=== PATIENT | male | born 1985 | race Caucasian/White ===

== ENCOUNTER 2019-10-22 02:43 | Emergency (ER) | payer OTHER, SELFPAY ==
[2019-10-22 03:00] VITALS: BP 145/81; PULSE 73; RESP 17; TEMP 36.8; O2SAT 98; BMI 25.0
--- NOTE | 2019-10-22 03:06 | HMH.EDMCLR ---
ED Disposition Clinical Impression: Encounter for medical clearance for patient hold Disposition: Home, Self-Care Condition on Discharge: Good Referrals: PCP,No [Primary Care Provider] - - Critical Care Critical Care Time: No Attestation: On 10/22/19, the high probability of a clinically significant, sudden or life threatening deterioration of the following system(s) required my full and direct attention, intervention and personal management. The time I documented below is in addition to time spent performing reported procedures but includes the following listed in this critical care notation. Medical Decision Making - Medical Records Medical records reviewed: Yes: I reviewed the patient's medical records. - Piter Inquiry Pt receiving controlled substance: No Vital Signs: 10/22/19 03:00 Temperature 98.2 F Temperature Source Oral Pulse Rate [Right Brachial] 73 Respiratory Rate 17 Blood Pressure [Right Arm] 145/81 H Blood Pressure Mean [Right Arm] 102 Blood Pressure Source [Right Arm] Automatic Cuff Blood Pressure Position [Right Arm] Sitting 02 Sat by Pulse Oximetry 98 Oxygen Delivery Method Room Air - Lab Data Lab results reviewed: Yes: I reviewed the patient's lab results. Medical Clearance HPI - General Chief complaint: Medical Clearance Stated complaint: Medical Clearance Time Seen by Provider: 10/22/19 03:00 Mode of Arrival: Ambulatory Source of Information: Patient Description of Symptoms (Recalled from ER Triage Doc. by RN): medical clearance for senior living - History of Present Illness complaint: medical clearance requested Onset (ago): hour(s) Reason for Medical Clearance: other (Arrested for methamphetamines) Place: street Alleged Intoxication: No Compliant with Home Medications: No Traumatic Symptoms: denies traumatic injury Associated Symptoms: denies other symptoms Treatments Prior to Arrival: none Allergies/Adverse reactions: Allergies Allergy/AdvReac Type Severity Reaction Status Date / Time INGREDIENT: NO KNOWN - NO Allergy Unknown Uncoded 03/11/17 14:44 KNOWN DRUG ALLERGY [facility] History - Hepatitis A Screen Drug use history?: No High risk sexual behaviors?: No History of sexually transmitted infection?: No Currently employed?: No Childcare worker?: No Do you have indoor plumbing?: Yes Do you have electricity?: Yes Attestation statement:: This patient has been screened for Hepatitis A risk factors. I have reviewed the patient's past medical history: Yes ROS Obtained: Yes All systems reviewed & no additional complaints - Constitutional Constitutional: Reports system reviewed and no additional complaints, except as docu - Eyes Eyes: Reports system reviewed and no additional complaints, except as docu - ENT Ears, Nose, Mouth, and Throat: Reports system reviewed and no additional complaints, except as docu - Cardiovascular Cardiovascular: Reports system reviewed and no additional complaints, except as docu - Respiratory Respiratory: Yes system reviewed and no additional complaints, except as docu - Gastrointestinal Gastrointestingal: Reports: system reviewed and no additional complaints, except as docu - Genitourinary Male Genitourinary: Reports system reviewed and no additional complaints, except as docu Female Genitourinary: Reports system reviewed and no additional complaints, except as docu - Musculoskeletal Musculoskeletal: Reports system reviewed and no additional complaints, except as docu - Integumentary/Breasts Skin/Breast: Reports system reviewed and no additional complaints, except as docu - Neurologic Neurologic: Reports system reviewed and no additional complaints, except as docu - Endocrine Endocrine: Reports system reviewed and no additional complaints, except as docu - Hematologic/Lymphatic Henatologic/Lymphatic: Reports system reviewed and no additional complaints, except as docu - Allergic/Immunologic Allergic/Immunolog
[2019-10-22 03:20] VITALS: BP 130/82; PULSE 69; RESP 16; TEMP 36.8; O2SAT 98
== END 2019-10-22 03:22 | disposition home or self-care (01) ==
PROVIDERS: Emergency Provider Family Medicine
DX: F15.10 Other stimulant abuse, uncomplicated (principal)
CPT/HCPCS: 99282

== ENCOUNTER 2023-11-11 17:46 | Emergency (ER) | payer OTHER, SELFPAY ==
--- NOTE | 2023-11-11 17:44 | XR_ITS ---
PROCEDURE INFORMATION: Exam: XR Chest Exam date and time: 11/11/2023 5:59 PM Age: 38 years old Clinical indication: Injury or trauma; Other: Cpr; Blunt trauma (contusions or hematomas); Additional info: Opioid od, narcan, bystander cpr TECHNIQUE: Imaging protocol: Radiologic exam of the chest. Views: 1 view. COMPARISON: No relevant prior studies available. FINDINGS: Lungs: No evidence of acute pulmonary disease or infiltrates Pleural spaces: No large effusion or pneumothorax. Heart/Mediastinum: No evidence of mediastinal widening or cardiac silhouette enlargement; the mediastinum and heart appear within normal limits for contour and size. Bones/joints: No evidence of acute osseous abnormalities within the visualized portions of the thoracic spine and ribs. Osseous structures appear appropriate for patient age. IMPRESSION: No dense parenchymal consolidation, pleural effusion, or pneumothorax.
[2023-11-11] MEDS: ONDANSETRON 4MG/2ML VIAL 4 MG IV (17:49)
[2023-11-11] MEDS: LACTATED RINGERS 1000ML 1,000 ML 999 ML IV (17:49)
--- NOTE | 2023-11-11 17:51 | ED_ITS ---
Discharge Plan Disposition Patient Disposition: Home, Self-Care Condition: Good Prescriptions Prescriptions: New naloxone [Narcan] 4 mg/actuation spray,non-aerosol 4 mg intranasal Q2M PRN (Reason: opioid overdose) Qty: 2 0RF Rx Instructions: spray 1 dose into ONE nostril; alternate nostrils w each dose until help arrives Referrals Follow up/Referrals: Provider,Referral, MD [Primary Care Provider] - See instructions Activity Restrictions/Add. Instructions Additional Instructions/Restrictions: You were evaluated in the emergency department today. Please clam picker your Narcan and keep on hand in case of emergencies. Refrain from drug use. Return to the emergency department for new or worsening symptoms Clinical Impressions Clinical Impression: Drug overdose Instructions Patient Instructions: DI for Drug Overdose in Adults Print Language Print Language: Martiniquais Discharge ED Provider: Julienne Torres General Adult HPI General Chief complaint: Overdose Stated complaint: OD/unresponsive 16mg Narcan [employer] Time Seen by Provider: 11/11/23 17:47 History of Present Illness HPI narrative: This patient is a 38-year-old male with a history of polysubstance use presenting to the emergency department for evaluation with concern for overdose. Patient reportedly went down at the home of his parents and received 14 mg of Narcan prior to arrival. He was initially unresponsive, but then was alert and oriented x 4. Patient states that he was helping his Mom move when he used what he thought was IV methamphetamines. He was found unresponsive, and a bystander at home reportedly had initiated CPR, though when police arrived on scene they noted the patient had a pulse and advised him to stop. Patient received intranasal Narcan with police and IV narcan with EMS, total 14 mg. Patient is currently awake and conversational. He currently states that he is nauseated but denies any other concerns or complaints. He denies any intent to harm himself. He notes that he has had to receive Narcan in the past for overdose, as he is tried a little bit of everything substance use lujan. Related Data Previous Rx's ?Medication ?Instructions ?Recorded naloxone 4 mg/actuation nasal 4 mg intranasal Q2M PRN opioid 11/11/23 spray (Narcan) overdose #2 ea Allergies Allergy/AdvReac Type Severity Reaction Status Date / Time INGREDIENT: NO KNOWN - NO Allergy Unknown Uncoded 03/11/17 14:44 KNOWN DRUG ALLERGY [facility] Disclaimer: The information contained in this section may have been updated after the patient was seen, as this information can be updated by other users. Social History Smoking Status: Never smoker alcohol intake: never current occupational status: unemployed Travel in the last 8 weeks: None ROS Obtained: Yes All systems reviewed & no additional complaints except as documented Physical Exam General General appearance: alert and in no apparent distress Head Head exam: atraumatic and normocephalic Eye Eye exam: Present normal appearance, PERRL and EOMI ENT ENT exam: Present normal exam, normal oropharynx, mucous membranes moist and normal external ear exam Neck Neck exam: Present normal inspection, full ROM and trachea midline; Absent tenderness Chest Chest inspection: Present normal inspection and symmetric chest wall rise; Absent tenderness Respiratory Respiratory exam: Present normal lung sounds bilaterally; Absent respiratory distress, wheezes, stridor or accessory muscle use Cardiovascular Cardiovascular exam: Present regular rate and normal rhythm Abdominal Exam Abdominal exam: Present soft; Absent distention, tenderness or guarding Extremities Exam Extremities exam: Present normal inspection, full ROM and normal capillary refill; Absent tenderness or edema Back Exam Back exam: Present normal inspection and full ROM; Absent tenderness Neurological Exam Neurological exam: Present alert, oriented X3, CN II-XII intact and normal gait; Absent motor sensory deficit Psychiatric Psychiatric exam: Present normal affect and normal mood Skin Skin exam: Present warm and diaphoresis Medical Decision Making Medical Records Medical records reviewed: Yes I reviewed the patient's medical records. Piter Inquiry Pt receiving controlled substance: No Vital Signs: 11/11/23 18:02 11/11/23 18:30 11/11/23 21:05 Temperature 97.4 F L 98.7 F Temperature Source Oral Oral Pulse Rate 70 61 Pulse Rate [Left Radial] 82 Respiratory Rate 20 18 Blood Pressure 127/84 142/64 H Blood Pressure [Right Arm] 123/83 Blood Pressure Mean [Right Arm] 96 Blood Pressure Source Automatic Cuff Blood Pressure Position Sitting 02 Sat by Pulse Oximetry 99 99 Oxygen Delivery Method Room Air Room Air Lab Data Lab results reviewed: Yes I reviewed the patient's lab results. Lab Results 11/11/23 17:41: WBC 4.5 L, RBC 4.36 L, Hgb 13.5 L, Hct 43.4, MCV 99.6 H, MCH 31.0, MCHC 31.1 L, RDW 14.1, Plt Count 324, MPV 7.4, Neut % (Auto) 54.8, Lymph % (Auto) 35.7, [place] % (Auto) 5.9, Eos % (Auto) 2.5, Baso % (Auto) 1.2, Neut # (Auto) 2.5, Lymph # (Auto) 1.6, [place] # (Auto) 0.3, Eos # (Auto) 0.1, Baso # (Auto) 0.1, Sodium 138, Potassium 3.2 L, Chloride 105, Carbon Dioxide 29, Anion Gap 7.2, BUN 10, Creatinine 0.80, Estimated GFR 108, Est GFR ( Amer) 130, Glucose 138 H, Lactate 1.6, Calcium 8.7, Total Bilirubin 0.6, AST 70 H, ALT 61, Alkaline Phosphatase 65, Total Protein 6.7, Albumin 4.0, Globulin 2.7, Albumin/Globulin Ratio 1.5, Salicylates < 1.0 L, Acetaminophen < 10 L, Plasma/Serum Alcohol < 10 11/11/23 17:48: VBG pH 7.42 H, VBG pCO2 43.0, VBG pO2 95.3 H, VBG HCO3 27.1, VBG Total CO2 28.4 H, VBG O2 Saturation 97.3 H, VBG Base Excess 2.6 H, VBG Lactic Acid 1.9 11/11/23 17:41 11/11/23 17:41 Orders (Tests/Meds): ED MEDICATIONS Discontinued Medications Generic Name Dose Route Start Last Admin Trade Name Mishaq PRN Reason Stop Dose Admin Lactated Ringer's 1,000 mls @ 999 mls/hr 11/11/23 17:47 11/11/23 17:49 Lactated Ringer's 1000 Ml Bag IV 11/11/23 18:47 999 mls/hr .Q1H1M ONE Administration Naloxone HCl 4 mg 11/11/23 18:28 11/11/23 18:29 Naloxone Hcl 4mg [place] NS 11/11/23 18:29 4 mg ONCE ONE Administration Ondansetron HCl 4 mg 11/11/23 17:47 11/11/23 17:49 Ondansetron 4mg/2ml Vial IV 11/11/23 17:48 4 mg ONCE ONE Administration ORDERS Category Date Time Status CXR --portable [XR chest portable] Stat Exams 11/11/23 17:44 Completed Acetaminophen Stat Lab 11/11/23 17:41 Completed Complete Blood Count Auto Diff Stat Lab 11/11/23 17:41 Completed Comprehensive Metabolic Panel Stat Lab 11/11/23 17:41 Completed Ethyl Alcohol Stat Lab 11/11/23 17:41 Completed Lactic Acid Stat Lab 11/11/23 17:41 Completed Salicylate Stat Lab 11/11/23 17:41 Completed VBG [Venous Blood Gas] Stat RT 11/11/23 17:48 Completed ECG Data Tracing #1: I reviewed this ECG and interpreted as documented below: Normal sinus rhythm with a ventricular rate of [address] changes concerning for ischemia. Normal axis and intervals ECG initial impression date: 11/11/23 ECG initial impression time: 17:55 Medical Decision Narrative: In summary, this patient is a 38-year-old male presenting to the Emergency Department for evaluation of overdose. Differential diagnoses considered include but are not limited to opioid overdose, polysubstance ingestion, suicide attempt, unintentional overdose, pulmonary edema from Narcan, hypoglycemia. History consistent with opioid overdose given initially unresponsive then A&O x 4 after narcan. Ruling out the most morbid conditions drove assessment. On exam, the patient is alert, conversational, nontoxic-appearing in no acute distress with reassuring vital signs on cardiac telemetry. Fingerstick blood glucose normal. EKG obtained is reassuring. workup included CBC, CMP, acetaminophen level, salicylate level, VBG, lactic acid, urinalysis, urine drug screen, chest x-ray. Patient was given a bolus of IV fluids as well as IV Zofran for symptomatic improvement. I independently interpreted CXR prior to the radiologist read and noted no obvious pulmonary edema, pneumothorax, or displaced rib fractures. Please see their read for final interpretation. Labs were obtained that demonstrated very mild leukopenia, with a mild alkalosis, mildly elevated AST. Patient also has mild hypokalemia with a potassium of 3.2. Salicylate, acetaminophen, ethanol negative. On multiple subsequent reassessments, the patient is very sleepy, but has no respiratory depression with bradypnea, apnea, or other concerns. Oxygen saturation remains 100% on cardiac telemetry. At 1815, patient was placed in ED observation status pending continued monitoring to make sure he does not have recurrence of respiratory depression in the setting of opioid overdose to determine whether or not the patient would be appropriate for discharge versus admission. The patient was provided serial reevaluations and cardiac monitoring while awaiting ultimate disposition. Patient continued to have clinical improvement. He did not have any respiratory depression or hypoxia noted on telemetry. Patient was able to ambulate and tolerate PO without difficulty. Given reassuring workup and exam, it is felt that the patient is appropriate for discharge at 2100. He was given take home pack of narcan and prescription for narcan. He was counseled on cessation of substance abuse. He was discharged with strict return precautions. Total ED observation time was 2 hours 45 minutes. I had a [id number] visit with the patient when providing discharge instructions. The total time involved in discharging this patient was less than 30 minutes. Critical Care Critical Care Time Critical Care Time: No
[2023-11-11 17:54] LABS: Lactate Venous 1.9 mmol/L (0.4-2.0); VBG Base Excess 2.6 mmol/L (-2.4-2.3); VBG HCO3 27.1 mmol/L (23-30); VBG Oxygen Saturation 97.3 % (50-70); VBG PH 7.42 mmol/L (7.31-7.41); VBG PO2 95.3 mmol/L (28-40); VBG Total CO2 28.4 mmol/L (23-27)
--- NOTE | 2023-11-11 17:54 | ECG_ITS ---
APPROVED REPORT Exam: Resting ECG HR:66 bpm ECG Measurements Heart Rate 66 AXES MI 170 P 69 QRSd 97 QRS 75 QT 410 T 47 QTc 424 Conclusion SINUS RHYTHM NORMAL ECG Electronically signed by : RADHA PÉREZ, 11/11/2023 19:07:05
[2023-11-11 17:57] LABS: Basophils # 0.1 K/mm3 (0-0.2); Basophils % 1.2 % (0.1-2.0); Eosinophils # 0.1 K/mm3 (0.0-0.4); Eosinophils % 2.5 % (0.1-12.0); Hematocrit 43.4 % (42.0-52.0); Hemoglobin 13.5 g/dL (14.1-18.0); Lymphocytes # 1.6 K/mm3 (0.7-4.5); Lymphocytes % 35.7 % (10-50); Mean Corpuscular HGB Conc 31.1 g/dL (31.8-35.4); Mean Corpuscular Volume 99.6 fl (80-94); Mean Platelet Volume 7.4 fl (7.4-10.4); Monocytes # 0.3 K/mm3 (0.1-1.0); Monocytes % 5.9 % (1.7-9.3); Neutrophils # 2.5 K/mm3 (1.8-7.8); Neutrophils % 54.8 % (37.0-80.0); Platelet Count 324 K/mm3 (142-424); Red Blood Count 4.36 M/mm3 (4.60-6.20); Red Cell Distribution Width 14.1 % (11.5-17.5); White Blood Count 4.5 K/mm3 (4.8-10.8)
[2023-11-11 18:00] LABS: Chloride 105 mmol/L (98-107); Potassium 3.2 mmoL/L (3.5-5.1); Sodium 138 mmol/L (136-145)
[2023-11-11 18:02] VITALS: BP 123/83; PULSE 82; RESP 20; TEMP 36.3; O2SAT 99; BMI 26.4
[2023-11-11 18:02] LABS: Lactic Acid 1.6 mmol/L (0.7-2.1)
[2023-11-11 18:03] LABS: Alanine Aminotransferase 61 U/L (12-78); Blood Urea Nitrogen 10 mg/dl (9-20); Estimated Glomerular Filt Rate 108 ml/min (>60); GFR (African American) 130 ML/MIN (>60)
[2023-11-11 18:05] LABS: Albumin/Globulin Ratio 1.5 (1.1-1.8); Alkaline Phosphatase 65 U/L (38-126); Anion Gap 7.2 mEq/L (5-15); Aspartate Amino Transferase 70 U/L (17-59); Bilirubin,Total 0.6 mg/dl (0.2-1.3); Calcium 8.7 mg/dl (8.4-10.2); Carbon Dioxide 29 mmol/L (22.0-30.0); Globulin 2.7 g/dL (1.3-3.2); Glucose 138 mg/dl (74-100); Total Protein,Serum 6.7 g/dl (6.3-8.2)
[2023-11-11 18:11] LABS: Acetaminophen < 10 ug/ml (10-30); Ethyl Alcohol < 10 mg/dl (0-10); Salicylate < 1.0 mg/dL (2.0-20.0)
[2023-11-11] MEDS: NALOXONE HCL 4MG SPRAY 4 MG NS (18:29)
[2023-11-11 18:30] VITALS: BP 127/84; PULSE 70; O2SAT 99
--- NOTE | 2023-11-11 18:41 | PC.NURSE ---
Pt advised he is unable to provide urine at this time. Pt provided with pillow and blanket. No other needs voiced.
--- NOTE | 2023-11-11 19:27 | PC.NURSE ---
Pt resting with eyes closed, resp even unlabored, easily awakened with verbal stimuli, denies any needs, updated on POC
[2023-11-11 21:05] VITALS: BP 142/64; PULSE 61; RESP 18; TEMP 37.1; O2SAT 97
== END 2023-11-11 21:06 | disposition home or self-care (01) ==
PROVIDERS: Emergency Provider Emergency Medicine
DX: T50.901A Poisoning by unspecified drugs, medicaments and biological substances, accidental (unintentional), initial encounter (principal); E87.6 Hypokalemia; R11.0 Nausea
CPT/HCPCS: 71045; 80053; 80320; 80329; 82803; 83605; 85025; 93005; 96361; 96374; 99285; G0480; J2405; J7120